=== PATIENT | male | born 1960 | race Caucasian/White ===

== ENCOUNTER 2023-08-01 17:10 | Inpatient (IN) | payer BC ==
[~2023-08-01 17:10] MED LIST: Iopamidol-370 76% 500 ML MDV (1 ML CHARGE) ONE
[2023-08-01 18:27] LABS: #Basophils 0.1 thou/uL (0.0-0.2); #Eosinphils 0.6 thou/uL (0.0-0.7); #Neutrophils 7.5 thou/uL (1.40-6.50); %Basophils 0.8 % (0.0-1.0); %Eosinophils 4.9 % (0.0-10.0); %Lymphocytes 22.8 % (21.0-51.0); %Neutrophils 63.1 % (42.0-75.0); Hematocrit 47.7 % (42.0-52.0); Hemoglobin 15.7 g/dL (14.0-18.0); Mean Corpuscular HGB CONC 32.9 g/dL (32.0-36.0); Mean Corpuscular Hemoglobin 28.6 pg (27.0-31.0); Mean Corpuscular Volume 86.9 fl (78.0-98.0); Mean Platelet Volume 10.4 fL (7.4-10.4); Platelet Count 258 10x3/uL (130-400); RBC Distribution Width 12.9 % (11.5-14.5); Red Blood Cell (RBC) Count 5.49 mill/uL (4.70-6.10); White Blood Cell (WBC) Count 11.8 10x3/uL (4.8-10.8)
[2023-08-01 18:56] LABS: ALT (SGPT) 17 U/L (8-55); AST (SGOT) 18 U/L (5-34); Albumin 4.4 g/dL (3.4-4.8); Alkaline Phosphatase 126 U/L (40-110); Anion Gap 18 mmol/L (10-20); BUN (Urea Nitrogen) 18 mg/dL (8.4-25.7); Bilirubin, Total 0.3 mg/dL (0.2-1.2); Calc. Creatinine Clearance 0 mL/min (70-130); Calcium 9.2 mg/dL (7.8-10.44); Carbon Dioxide 21 mmol/L (23-31); Chloride 100 mmol/L (98-107); Estimated GFR 63; Lipase 59 U/L (8-78); Potassium 4.4 mmol/L (3.5-5.1); Protein, Total 7.4 g/dL (5.8-8.1); Sodium 135 mmol/L (136-145)
[2023-08-01 19:08] LABS: Glucose 429 mg/dL (80-115); Troponin I 0.305 ng/mL (< 0.028)
[2023-08-01] MEDS ORDERED: Insulin Regular 300 UNITS/3 ML VIAL ONE (19:42)
[2023-08-01] MEDS ORDERED: Midazolam HCl 2 mg/2 ml Vial ONE (20:40)
[2023-08-01] MEDS ORDERED: Furosemide 40 MG/4 ML VIAL ONE (22:46)
[2023-08-01] MEDS ORDERED: Dextrose 5% in Water 1,000 ML IV PRN (22:48)
[2023-08-01] MEDS ORDERED: Glucagon 1 MG/ML KIT IM PRN (22:48)
[2023-08-01] MEDS ORDERED: Ondansetron ODT 4 MG TAB PO PRN (22:48)
[2023-08-01] MEDS ORDERED: Dextrose 50% Abboject 50 ML SYRINGE SLOW IVP PRN (22:48)
[2023-08-01] MEDS ORDERED: Ondansetron PF 4 MG/2 ML Vial IVP PRN (22:48)
[2023-08-01] MEDS ORDERED: HumaLOG 300 UNITS/3 ML VIAL SC PRN (22:48)
[2023-08-01] MEDS ORDERED: Acetaminophen 325 MG TAB PO PRN (22:48)
[2023-08-02 02:33] LABS: #Basophils 0.1 thou/uL (0.0-0.2); #Eosinphils 0.7 thou/uL (0.0-0.7); #Monocytes 1.1 thou/uL (0.11-0.59); #Neutrophils 8.2 thou/uL (1.40-6.50); %Basophils 0.6 % (0.0-1.0); %Eosinophils 5.7 % (0.0-10.0); %Lymphocytes 18.5 % (21.0-51.0); %Monocytes 9.2 % (0.0-10.0); %Neutrophils 65.7 % (42.0-75.0); Hematocrit 46.9 % (42.0-52.0); Hemoglobin 15.2 g/dL (14.0-18.0); Mean Corpuscular HGB CONC 32.4 g/dL (32.0-36.0); Mean Corpuscular Hemoglobin 28.1 pg (27.0-31.0); Mean Corpuscular Volume 86.7 fl (78.0-98.0); Mean Platelet Volume 10.4 fL (7.4-10.4); Platelet Count 255 10x3/uL (130-400); RBC Distribution Width 13.1 % (11.5-14.5); Red Blood Cell (RBC) Count 5.41 mill/uL (4.70-6.10); White Blood Cell (WBC) Count 12.4 10x3/uL (4.8-10.8)
[2023-08-02 03:17] LABS: Troponin I 2.483 ng/mL (< 0.028)
[2023-08-02 04:10] LABS: Hemoglobin A1c 11.6 % (4.0-6.0)
[2023-08-02 04:11] LABS: Anion Gap 18 mmol/L (10-20); BUN (Urea Nitrogen) 14 mg/dL (8.4-25.7); Calc. Creatinine Clearance 0 mL/min (70-130); Calcium 8.9 mg/dL (7.8-10.44); Carbon Dioxide 22 mmol/L (23-31); Cardiac Risk 6.4 (Less than 4.5); Chloride 101 mmol/L (98-107); Cholesterol 283 mg/dl (< 200 Desired); Estimated GFR 77; Glucose 298 mg/dL (80-115); HDL Cholesterol 44 mg/dL (>60 Neg Risk); LDL Cholesterol, Calculated 184 mg/dL; Potassium 4.1 mmol/L (3.5-5.1); Sodium 137 mmol/L (136-145); Triglycerides 275 mg/dL (Less than 150)
[2023-08-02 09:21] VITALS: BMI 28.5
[2023-08-02] MEDS ORDERED: Ipratropium/Albuterol 3 ML NEB ONE (10:08)
[2023-08-02] MEDS ORDERED: Ipratropium/Albuterol 3 ML NEB NEB PRN (10:21)
[2023-08-02] MEDS ORDERED: Melatonin 3 MG TAB PO PRN (19:03)
[2023-08-02] MEDS ORDERED: Sodium Chloride 0.9% 1,000 ML IV SCH (20:00)
[2023-08-02] MEDS ORDERED: Communication Order-Pharmacy FS SCH (20:00)
[2023-08-02] MEDS: Insulin Glargine 30 UNITS/0.3 ML VIAL SC SCH (20:59)
[2023-08-02] MEDS: Atorvastatin Calcium 40 MG TAB PO SCH (21:00)
[2023-08-02] MEDS: Benzonatate 100 MG CAP PO PRN (21:01)
[2023-08-03 05:02] LABS: #Basophils 0.1 thou/uL (0.0-0.2); #Eosinphils 0.5 thou/uL (0.0-0.7); #Monocytes 0.9 thou/uL (0.11-0.59); #Neutrophils 5.1 thou/uL (1.40-6.50); %Basophils 0.5 % (0.0-1.0); %Eosinophils 5.4 % (0.0-10.0); %Lymphocytes 30.3 % (21.0-51.0); %Monocytes 9.9 % (0.0-10.0); %Neutrophils 53.6 % (42.0-75.0); Hematocrit 47.7 % (42.0-52.0); Hemoglobin 15.6 g/dL (14.0-18.0); Mean Corpuscular HGB CONC 32.7 g/dL (32.0-36.0); Mean Corpuscular Hemoglobin 28.3 pg (27.0-31.0); Mean Corpuscular Volume 86.6 fl (78.0-98.0); Mean Platelet Volume 10.1 fL (7.4-10.4); Platelet Count 253 10x3/uL (130-400); RBC Distribution Width 13.2 % (11.5-14.5); Red Blood Cell (RBC) Count 5.51 mill/uL (4.70-6.10); White Blood Cell (WBC) Count 9.5 10x3/uL (4.8-10.8)
[2023-08-03 05:27] LABS: Anion Gap 13 mmol/L (10-20); BUN (Urea Nitrogen) 13 mg/dL (8.4-25.7); Calc. Creatinine Clearance 139 mL/min (70-130); Calcium 9.1 mg/dL (7.8-10.44); Carbon Dioxide 25 mmol/L (23-31); Chloride 100 mmol/L (98-107); Estimated GFR 96; Glucose 239 mg/dL (80-115); Potassium 4.1 mmol/L (3.5-5.1); Sodium 134 mmol/L (136-145)
[2023-08-03] MEDS ORDERED: Sodium Chloride 0.9% 1,000 ML IV SCH (06:00)
[2023-08-03] MEDS: Benzonatate 100 MG CAP PO PRN ×3 (08:00→20:50)
[2023-08-03] MEDS ORDERED: Iopamidol 370 76% 100 ML VIAL ONE (09:28)
[2023-08-03] MEDS ORDERED: Ipratropium/Albuterol 3 ML NEB NEB SCH (11:00)
[2023-08-03] MEDS: Lorazepam 2 MG/ML VIAL SLOW IVP PRN (13:00)
[2023-08-03] MEDS ORDERED: Adenosine 6 MG/2 ML VIAL ONE (13:03)
[2023-08-03] MEDS ORDERED: Lidocaine 1% PF 5 ML VIAL ONE (13:03)
[2023-08-03] MEDS ORDERED: Lidocaine 1% (PF) 30 ML VIAL ONE (13:03)
[2023-08-03] MEDS ORDERED: Heparin 10,000 UNITS/ 10 ML VIAL ONE (13:03)
[2023-08-03] MEDS ORDERED: Verapamil 5 MG/2 ML VIAL ONE (13:03)
[2023-08-03] MEDS ORDERED: fentaNYL 50 mcg/mL 1 mL Vial ONE (13:03)
[2023-08-03] MEDS ORDERED: Midazolam HCl 2 mg/2 ml Vial ONE (13:03)
[2023-08-03] MEDS ORDERED: Nitroglycerin 50 MG/250 ML BOT 250 ML ONE (13:04)
[2023-08-03] MEDS ORDERED: Nitroglycerin 0.4 MG TAB (25 Tab Bottle) SL PRN (14:32)
[2023-08-03] MEDS ORDERED: Acetaminophen/Codeine 30-300mg Tablet PO PRN (14:32)
[2023-08-03] MEDS ORDERED: Sodium Chloride 0.9% 200 ML IV PRN (14:32)
[2023-08-03] MEDS ORDERED: Carvedilol 6.25 MG TAB PO SCH (17:00)
[2023-08-03] MEDS ORDERED: Communication Order-Pharmacy FS SCH (19:21)
[2023-08-03] MEDS ORDERED: Diazepam 5 MG TAB PO PRN (19:21)
[2023-08-03] MEDS: Atorvastatin Calcium 40 MG TAB PO SCH (20:48)
[2023-08-03] MEDS: Insulin Glargine 30 UNITS/0.3 ML VIAL SC SCH (21:56)
[2023-08-04 04:32] LABS: #Basophils 0.1 thou/uL (0.0-0.2); #Eosinphils 0.7 thou/uL (0.0-0.7); #Monocytes 1.3 thou/uL (0.11-0.59); #Neutrophils 7.6 thou/uL (1.40-6.50); %Basophils 0.7 % (0.0-1.0); %Eosinophils 5.4 % (0.0-10.0); %Lymphocytes 22.1 % (21.0-51.0); %Monocytes 10.7 % (0.0-10.0); %Neutrophils 60.7 % (42.0-75.0); Hemoglobin 15.1 g/dL (14.0-18.0); Mean Corpuscular HGB CONC 32.1 g/dL (32.0-36.0); Mean Corpuscular Hemoglobin 28.1 pg (27.0-31.0); Mean Corpuscular Volume 87.4 fl (78.0-98.0); Mean Platelet Volume 10.3 fL (7.4-10.4); Platelet Count 257 10x3/uL (130-400); RBC Distribution Width 13.1 % (11.5-14.5); Red Blood Cell (RBC) Count 5.38 mill/uL (4.70-6.10); White Blood Cell (WBC) Count 12.5 10x3/uL (4.8-10.8)
[2023-08-04 04:59] LABS: Anion Gap 14 mmol/L (10-20); BUN (Urea Nitrogen) 12 mg/dL (8.4-25.7); Calc. Creatinine Clearance 115 mL/min (70-130); Calcium 8.8 mg/dL (7.8-10.44); Carbon Dioxide 25 mmol/L (23-31); Chloride 102 mmol/L (98-107); Estimated GFR 76; Glucose 206 mg/dL (80-115); Potassium 3.8 mmol/L (3.5-5.1); Sodium 137 mmol/L (136-145)
[2023-08-04] MEDS: HumaLOG 300 UNITS/3 ML VIAL SC PRN ×3 (05:51→17:29)
[2023-08-04] MEDS: Carvedilol 6.25 MG TAB PO SCH ×2 (08:59→17:23)
[2023-08-04] MEDS ORDERED: Aspirin 81 mg Enteric Coated Tablet PO SCH (09:00)
[2023-08-04] MEDS ORDERED: Furosemide 40 MG/4 ML VIAL SLOW IVP SCH (09:00)
[2023-08-04] MEDS ORDERED: Insulin Glargine 30 UNITS/0.3 ML VIAL SC SCH ×2 (09:00→21:00)
[2023-08-04] MEDS: Benzonatate 100 MG CAP PO PRN (14:09)
[2023-08-04] MEDS: Atorvastatin Calcium 40 MG TAB PO SCH (20:54)
[2023-08-05] MEDS ORDERED: Sevoflurane 250 ML INH ANEST BOTTLE ONE (05:12)
[2023-08-05 05:22] LABS: #Eosinphils 0.5 thou/uL (0.0-0.7); #Monocytes 1.4 thou/uL (0.11-0.59); #Neutrophils 9.6 thou/uL (1.40-6.50); %Basophils 0.3 % (0.0-1.0); %Eosinophils 3.9 % (0.0-10.0); %Monocytes 10.1 % (0.0-10.0); %Neutrophils 71.3 % (42.0-75.0); Mean Corpuscular HGB CONC 32.6 g/dL (32.0-36.0); Mean Corpuscular Hemoglobin 28.3 pg (27.0-31.0); Mean Corpuscular Volume 86.8 fl (78.0-98.0); Mean Platelet Volume 10.3 fL (7.4-10.4); Platelet Count 274 10x3/uL (130-400); RBC Distribution Width 13.1 % (11.5-14.5); White Blood Cell (WBC) Count 13.5 10x3/uL (4.8-10.8)
[2023-08-05] MEDS: Carvedilol 6.25 MG TAB PO SCH (05:45)
[2023-08-05] MEDS: Lorazepam 2 MG/ML VIAL SLOW IVP PRN (05:46)
[2023-08-05] MEDS: Benzonatate 100 MG CAP PO PRN (05:46)
[2023-08-05 05:58] LABS: Anion Gap 14 mmol/L (10-20); BUN (Urea Nitrogen) 15 mg/dL (8.4-25.7); Calc. Creatinine Clearance 123 mL/min (70-130); Calcium 9.2 mg/dL (7.8-10.44); Carbon Dioxide 25 mmol/L (23-31); Chloride 101 mmol/L (98-107); Estimated GFR 86; Glucose 190 mg/dL (80-115); Potassium 3.4 mmol/L (3.5-5.1); Sodium 137 mmol/L (136-145)
[2023-08-05] MEDS ORDERED: Norepinephrine 4 MG/4 ML VIAL ONE (06:01)
[2023-08-05] MEDS ORDERED: Fentanyl 250 MCG/5 ML VIAL ONE (06:02)
[2023-08-05] MEDS ORDERED: Midazolam HCl 5 mg/ml Vial ONE (06:02)
[2023-08-05] MEDS ORDERED: Aminocaproic Acid 5 GM/20 ML VIAL ONE ×3 (06:03→06:36)
[2023-08-05] MEDS ORDERED: Rocuronium Bromide 10 MG/ML (10ML VIAL) ONE ×2 (06:09→06:36)
[2023-08-05] MEDS ORDERED: Lidocaine 1% PF 5 ML VIAL ONE ×2 (06:09→06:36)
[2023-08-05] MEDS ORDERED: Sterile Water 10 ML ONE (06:10)
[2023-08-05] MEDS ORDERED: PROPOFOL 20 ML ONE ×2 (06:35→08:58)
[2023-08-05] MEDS ORDERED: Calcium Chloride 1 GM/10 ML Abboject SYRINGE ONE (06:36)
[2023-08-05] MEDS ORDERED: PHENYLEPHRINE-NS 100 MCG/ML 10 ML SYRINGE ONE ×3 (06:36→10:41)
[2023-08-05] MEDS ORDERED: Lidocaine 2% PF 100 mg/5 ml Syringe ONE (06:36)
[2023-08-05] MEDS ORDERED: Heparin 5,000 UNITS/ML VIAL ONE (06:36)
[2023-08-05] MEDS ORDERED: Magnesium 5 GM/10 ML VIAL ONE (06:36)
[2023-08-05] MEDS ORDERED: Thrombin 5000 UNITS/5 ML VIAL ONE (06:36)
[2023-08-05] MEDS ORDERED: Potassium Chloride 60 MEQ/30 ML VIAL ONE (06:36)
[2023-08-05] MEDS ORDERED: Sodium Bicarb 50 MEQ/50 ML VIAL ONE (06:36)
[2023-08-05] MEDS ORDERED: Papaverine 60 MG/2 ML VIAL ONE (06:36)
[2023-08-05] MEDS ORDERED: Vancomycin 1 GM VIAL ONE (06:36)
[2023-08-05] MEDS ORDERED: Heparin 30,000 units/30 ml VIAL ONE (06:36)
[2023-08-05] MEDS ORDERED: Mannitol 12.5 GM/50 ML ONE (06:36)
[2023-08-05] MEDS ORDERED: Cardioplegic Soln 1,000 ML BAG ONE (06:36)
[2023-08-05] MEDS ORDERED: Protamine Sulfate 250 MG/25 ML VIAL ONE (06:36)
[2023-08-05] MEDS ORDERED: PROPOFOL 200 MG/20 ML VIAL ONE (06:36)
[2023-08-05] MEDS ORDERED: Bupivacaine PF 0.5% 30 ML VIAL ONE (06:41)
[2023-08-05] MEDS ORDERED: Dexamethasone 4 mg/ml Vial ONE (06:41)
[2023-08-05] MEDS ORDERED: Albumin 5% 500 ML ONE (06:41)
[2023-08-05] MEDS ORDERED: EPINEPHrine 1 MG/ML VIAL ONE (06:41)
[2023-08-05] MEDS ORDERED: Lidocaine 1% MPF 2 ML VIAL ONE (06:44)
[2023-08-05] MEDS ORDERED: Heparin 10,000 UNITS/1 ML VIAL 30,000 UNITS in Sodium Chloride 0.9% 1,000 ML FS SCH (06:45)
[2023-08-05] MEDS ORDERED: Sodium Chloride 0.9% 100 ML ONE (07:18)
[2023-08-05] MEDS ORDERED: CEFAZOLIN 2 GM VIAL ONE (07:18)
[2023-08-05] MEDS ORDERED: CEFAZOLIN 2 GM in Sodium Chloride 0.9% 100 ML IVPB SCH (07:30)
[2023-08-05] MEDS ORDERED: Potassium Chloride 20 MEQ in Premix 2 BAG IVPB SCH (08:00)
[2023-08-05] MEDS ORDERED: Heparin 10,000 UNITS/ 10 ML VIAL ONE (08:18)
[2023-08-05] MEDS ORDERED: Insulin Regular 300 UNITS/3 ML VIAL ONE (08:21)
[2023-08-05] MEDS ORDERED: Protamine Sulfate 50 MG/5 ML VIAL ONE (10:40)
[2023-08-05] MEDS ORDERED: Nitroglycerin 50 MG/250 ML BOT 250 ML IVPB PRN (11:06)
[2023-08-05] MEDS ORDERED: Ipratropium/Albuterol 3 ML NEB NEB PRN (11:06)
[2023-08-05] MEDS ORDERED: fentaNYL 50 mcg/mL 1 mL Vial SLOW IVP PRN (11:06)
[2023-08-05] MEDS ORDERED: NOREPINEPHRINE 8 MG/250 ML-D5W 250 ML IVPB PRN (11:06)
[2023-08-05] MEDS ORDERED: Hetastarch 6% 500 ML 500 ML IVPB PRN (11:06)
[2023-08-05] MEDS ORDERED: hydrALAZINE 20 MG/ML VIAL SLOW IVP PRN (11:06)
[2023-08-05] MEDS ORDERED: traMADol HCl 50 MG TAB PO PRN (11:06)
[2023-08-05] MEDS ORDERED: D5 1/2 NS w/20 mEq KCL 1,000 ML IV SCH (11:06)
[2023-08-05] MEDS ORDERED: Potassium Chloride 20 MEQ/100 ML PREMIX BAG IVPB PRN (11:06)
[2023-08-05] MEDS ORDERED: Ondansetron PF 4 MG/2 ML Vial IVP PRN (11:06)
[2023-08-05] MEDS ORDERED: Phenylephrine 40 MG in Sodium Chloride 0.9% 250 ML 250 ML IVPB PRN (11:06)
[2023-08-05] MEDS ORDERED: Mag-Al 1200 mg/1200 mg/30 ML UDCUP PO PRN (11:06)
[2023-08-05] MEDS ORDERED: Post-Op Insulin Drip Protocol IVPB ONE (11:06)
[2023-08-05] MEDS ORDERED: Guaifenesin DM 100-10/5 ML UDCUP PO PRN (11:06)
[2023-08-05] MEDS ORDERED: Acetaminophen 325 MG TAB PO PRN (11:06)
[2023-08-05] MEDS ORDERED: Bisacodyl 5 MG TAB PO PRN (11:06)
[2023-08-05] MEDS ORDERED: Magnesium 2 GM/50 ML(in water) 2 GM in Premix 1 BAG IVPB SCH (11:06)
[2023-08-05] MEDS ORDERED: Bisacodyl 10 MG SUPP PR PRN (11:06)
[2023-08-05] MEDS ORDERED: Morphine 2 MG/ML VIAL SLOW IVP PRN (11:06)
[2023-08-05] MEDS ORDERED: HUMULIN R 100 UNITS in Sodium Chloride 0.9% 100 ML IVPB SCH (11:15)
[2023-08-05] MEDS ORDERED: Dextrose 50% Abboject 50 ML SYRINGE SLOW IVP PRN (11:15)
[2023-08-05] MEDS ORDERED: Glucagon 1 MG/ML KIT SC PRN (11:15)
[2023-08-05] MEDS ORDERED: Dextrose 5% in Water 1,000 ML IV PRN (11:15)
[2023-08-05 11:21] LABS: #Basophils 0.1 thou/uL (0.0-0.2); #Eosinphils 0.4 thou/uL (0.0-0.7); #Monocytes 1.6 thou/uL (0.11-0.59); #Neutrophils 18.2 thou/uL (1.40-6.50); %Basophils 0.2 % (0.0-1.0); %Eosinophils 1.8 % (0.0-10.0); %Monocytes 7.1 % (0.0-10.0); %Neutrophils 81.8 % (42.0-75.0); Hematocrit 39.2 % (42.0-52.0); Hemoglobin 12.8 g/dL (14.0-18.0); Mean Corpuscular HGB CONC 32.7 g/dL (32.0-36.0); Mean Corpuscular Hemoglobin 28.7 pg (27.0-31.0); Mean Corpuscular Volume 87.9 fl (78.0-98.0); Mean Platelet Volume 10.4 fL (7.4-10.4); Platelet Count 219 10x3/uL (130-400); Red Blood Cell (RBC) Count 4.46 mill/uL (4.70-6.10); White Blood Cell (WBC) Count 22.3 10x3/uL (4.8-10.8)
[2023-08-05] MEDS: Ketorolac Tromethamine 30 MG/ML VIAL IVP SCH ×3 (11:22→23:28)
[2023-08-05] MEDS: Insulin Regular 300 UNITS/3 ML VIAL SC PRN (11:22)
[2023-08-05 11:30] LABS: Actual Bicarbonate (HCO3a) 21.6 mEq/L (22-28); Base Excess (BEa) -2.8 mEq/L (-2.0 to +3.0); CO2 Tension 36.6 mmHg (35.0-45.0); Calcium, Ionized (arterial) 1.09 mmol/L (1.12-1.30); Carboxyhemoglobin (COHb) 1.3 gm% (0.0-3.0); Hematocrit-ABG 39 % (42.0-52.0); Hemoglobin (Hb) 13.4 g/dL (14.0-18.0); O2 Tension (PaO2), arterial 118.1 mmHg (> 80.0); Potassium - ABG Lab 4.08 mmol/L (3.70-5.30); pH, Arterial 7.389 (7.35-7.45)
[2023-08-05 11:32] LABS: Puncture Site ALINE
[2023-08-05 11:38] LABS: INR-International Normal Ratio 1.2; Prothrombin Time 16.1 sec (12.0-14.7)
[2023-08-05] MEDS: fentaNYL 50 mcg/mL 1 mL Vial SLOW IVP PRN ×2 (11:39→21:50)
[2023-08-05 11:44] LABS: Anion Gap 13 mmol/L (10-20); BUN (Urea Nitrogen) 14 mg/dL (8.4-25.7); Calc. Creatinine Clearance 131 mL/min (70-130); Calcium 7.9 mg/dL (7.8-10.44); Carbon Dioxide 23 mmol/L (23-31); Chloride 106 mmol/L (98-107); Estimated GFR 92; Glucose 192 mg/dL (80-115); Potassium 4.4 mmol/L (3.5-5.1); Sodium 138 mmol/L (136-145)
[2023-08-05] MEDS: CEFAZOLIN 2 GM in Sodium Chloride 0.9% 100 ML IVPB SCH ×2 (14:02→22:00)
[2023-08-05 14:19] LABS: Actual Bicarbonate (HCO3a) 22.4 mEq/L (22-28); CO2 Tension 37.5 mmHg (35.0-45.0); Hematocrit-ABG 40 % (42.0-52.0); Hemoglobin (Hb) 13.7 g/dL (14.0-18.0); O2 Tension (PaO2), arterial 90.4 mmHg (> 80.0); Potassium - ABG Lab 3.86 mmol/L (3.70-5.30); pH, Arterial 7.395 (7.35-7.45)
[2023-08-05 14:25] LABS: ALV-art Gradient 76.625 mmHg (0-20); Puncture Site Arterial Line
[2023-08-05] MEDS: traMADol HCl 50 MG TAB PO PRN (16:40)
[2023-08-05 18:22] LABS: Hematocrit 41.2 % (42.0-52.0); Hemoglobin 13.4 g/dL (14.0-18.0)
[2023-08-05 18:37] LABS: Potassium 3.9 mmol/L (3.5-5.1)
[2023-08-05] MEDS ORDERED: Atorvastatin Calcium 20 MG TAB PO SCH (21:00)
[2023-08-05] MEDS ORDERED: Famotidine/PF 20 mg/2ml Vial SLOW IVP SCH (21:00)
[2023-08-06] MEDS: traMADol HCl 50 MG TAB PO PRN (03:58)
[2023-08-06 05:13] LABS: #Basophils 0.1 thou/uL (0.0-0.2); #Eosinphils 0.1 thou/uL (0.0-0.7); #Monocytes 1.6 thou/uL (0.11-0.59); #Neutrophils 12.8 thou/uL (1.40-6.50); %Basophils 0.3 % (0.0-1.0); %Eosinophils 0.7 % (0.0-10.0); %Lymphocytes 9.8 % (21.0-51.0); %Monocytes 9.7 % (0.0-10.0); %Neutrophils 78.6 % (42.0-75.0); Hematocrit 41.2 % (42.0-52.0); Hemoglobin 13.1 g/dL (14.0-18.0); Mean Corpuscular HGB CONC 31.8 g/dL (32.0-36.0); Mean Corpuscular Hemoglobin 28.4 pg (27.0-31.0); Mean Corpuscular Volume 89.4 fl (78.0-98.0); Mean Platelet Volume 10.6 fL (7.4-10.4); Platelet Count 220 10x3/uL (130-400); RBC Distribution Width 13.5 % (11.5-14.5); Red Blood Cell (RBC) Count 4.61 mill/uL (4.70-6.10); White Blood Cell (WBC) Count 16.2 10x3/uL (4.8-10.8)
[2023-08-06] MEDS: Ketorolac Tromethamine 30 MG/ML VIAL IVP SCH ×3 (05:36→17:49)
[2023-08-06 06:04] LABS: Anion Gap 14 mmol/L (10-20); BUN (Urea Nitrogen) 13 mg/dL (8.4-25.7); Calc. Creatinine Clearance 157 mL/min (70-130); Calcium 8.1 mg/dL (7.8-10.44); Carbon Dioxide 21 mmol/L (23-31); Chloride 106 mmol/L (98-107); Estimated GFR 99; Glucose 123 mg/dL (80-115); Sodium 137 mmol/L (136-145)
[2023-08-06] MEDS ORDERED: Benzonatate 100 MG CAP PO PRN (06:47)
[2023-08-06] MEDS: Insulin Regular 300 UNITS/3 ML VIAL SC PRN ×4 (08:38→20:20)
[2023-08-06] MEDS: CEFAZOLIN 2 GM in Sodium Chloride 0.9% 100 ML IVPB SCH (08:39)
[2023-08-06] MEDS: Magnesium 2 GM/50 ML(in water) 2 GM in Premix 1 BAG IVPB SCH (08:40)
[2023-08-06] MEDS: Carvedilol 3.125 MG TAB PO SCH ×2 (08:40→16:53)
[2023-08-06] MEDS ORDERED: Aspirin 325 MG TAB PO SCH (09:00)
[2023-08-06] MEDS ORDERED: Insulin Glargine 30 UNITS/0.3 ML VIAL SC PRN (11:11)
[2023-08-06] MEDS ORDERED: Hetastarch 6% 500 ML 500 ML IVPB SCH (11:30)
[2023-08-06] MEDS: Atorvastatin Calcium 40 MG TAB PO SCH (20:17)
[2023-08-06] MEDS: Insulin Glargine 30 UNITS/0.3 ML VIAL SC SCH (20:19)
[2023-08-07] MEDS: Ketorolac Tromethamine 30 MG/ML VIAL IVP SCH ×5 (00:21→23:16)
[2023-08-07] MEDS: Insulin Regular 300 UNITS/3 ML VIAL SC PRN ×2 (05:17→12:54)
[2023-08-07] MEDS ORDERED: Guaifenesin DM 100-10/5 ML UDCUP PO PRN (07:23)
[2023-08-07] MEDS ORDERED: Mag-Al 1200 mg/1200 mg/30 ML UDCUP PO PRN (07:23)
[2023-08-07] MEDS ORDERED: Artificial Tear Sol 15 ML BOT EA EYE PRN (07:23)
[2023-08-07] MEDS ORDERED: diphenhydrAMINE 25 MG CAP PO PRN (07:23)
[2023-08-07] MEDS ORDERED: Bisacodyl 10 MG SUPP PR PRN (07:23)
[2023-08-07] MEDS ORDERED: Bisacodyl 5 MG TAB PO PRN (07:23)
[2023-08-07] MEDS ORDERED: Zolpidem Tartrate 5 MG TAB PO PRN (07:23)
[2023-08-07] MEDS ORDERED: Milk Of Magnesia 30 ML UDCUP PO PRN (07:23)
[2023-08-07] MEDS ORDERED: Mineral Oil ENEMA PR PRN (07:23)
[2023-08-07] MEDS ORDERED: Nitroglycerin 0.4 MG TAB (25 Tab Bottle) SL PRN (07:23)
[2023-08-07] MEDS: Magnesium 2 GM/50 ML(in water) 2 GM in Premix 1 BAG IVPB SCH (07:55)
[2023-08-07] MEDS: Insulin Glargine 30 UNITS/0.3 ML VIAL SC SCH ×2 (07:55→09:59)
[2023-08-07] MEDS: Potassium Chloride 10 MEQ TAB PO SCH (08:01)
[2023-08-07] MEDS: Furosemide 40 MG TAB PO SCH (08:01)
[2023-08-07] MEDS: Aspirin 325 mg Enteric Coated Tablet PO SCH (08:01)
[2023-08-07] MEDS ORDERED: Insulin Glargine 30 UNITS/0.3 ML VIAL SC SCH ×2 (08:19→09:00)
[2023-08-07] MEDS: Carvedilol 3.125 MG TAB PO SCH ×2 (09:59→17:59)
[2023-08-07] MEDS: traMADol HCl 50 MG TAB PO PRN (10:07)
[2023-08-07] MEDS: Benzonatate 100 MG CAP PO SCH ×2 (14:46→20:11)
[2023-08-07] MEDS: metFORMIN 500 MG TAB PO SCH (18:00)
[2023-08-07] MEDS: Atorvastatin Calcium 40 MG TAB PO SCH (20:10)
[2023-08-08] MEDS: Ketorolac Tromethamine 30 MG/ML VIAL IVP SCH ×2 (06:31→12:03)
[2023-08-08] MEDS: Furosemide 40 MG TAB PO SCH (09:15)
[2023-08-08] MEDS: Benzonatate 100 MG CAP PO SCH (09:15)
[2023-08-08] MEDS: metFORMIN 500 MG TAB PO SCH (09:15)
[2023-08-08] MEDS: Potassium Chloride 10 MEQ TAB PO SCH (09:15)
[2023-08-08] MEDS: Carvedilol 3.125 MG TAB PO SCH (09:15)
[2023-08-08] MEDS: Aspirin 325 mg Enteric Coated Tablet PO SCH (09:15)
[2023-08-08] MEDS: Insulin Glargine 30 UNITS/0.3 ML VIAL SC SCH (09:15)
[2023-08-08 11:45] VITALS: TEMP 97.6
[2023-08-08] MEDS: traMADol HCl 50 MG TAB PO PRN (12:02)
[2023-08-08] MEDS: Insulin Regular 300 UNITS/3 ML VIAL SC PRN (12:04)
[2023-08-08 12:47] VITALS: BP 136/74
== END 2023-08-08 13:10 | disposition home or self-care (01) | DRG 233 ==
LOC: ERS 17:10 → ERHOLD 22:52 → 2SW 08-02 12:25 → OBSVTOIN 08-03 14:58 → CCU 08-05 09:56 → 2NO 08-07 09:07
PROVIDERS: ADMIT Physician Assistant; ATTEND Family Medicine
PROC: B2111ZZ Fluoroscopy of Multiple Coronary Arteries using Low Osmolar Contrast (ICD-10-PCS; principal; 2023-08-03)
PROC: 02100Z9 Bypass Coronary Artery, One Artery from Left Internal Mammary, Open Approach (ICD-10-PCS; 2023-08-05)
PROC: 021109W Bypass Coronary Artery, Two Arteries from Aorta with Autologous Venous Tissue, Open Approach (ICD-10-PCS; 2023-08-05)
PROC: 06BQ4ZZ Excision of Left Saphenous Vein, Percutaneous Endoscopic Approach (ICD-10-PCS; 2023-08-05)
PROC: 5A1221Z Performance of Cardiac Output, Continuous (ICD-10-PCS; 2023-08-05)
PROC: 02L70CK Occlusion of Left Atrial Appendage with Extraluminal Device, Open Approach (ICD-10-PCS; 2023-08-05)
PROC: 4A133R1 Monitoring of Arterial Saturation, Peripheral, Percutaneous Approach (ICD-10-PCS; 2023-08-05)
PROC: 3E033XZ Introduction of Vasopressor into Peripheral Vein, Percutaneous Approach (ICD-10-PCS; 2023-08-05)
PROC: 30233J1 Transfusion of Nonautologous Serum Albumin into Peripheral Vein, Percutaneous Approach (ICD-10-PCS; 2023-08-05)
DX: I21.4 Non-ST elevation (NSTEMI) myocardial infarction (principal); J81.0 Acute pulmonary edema; I10 Essential (primary) hypertension; E78.5 Hyperlipidemia, unspecified; E66.9 Obesity, unspecified; E11.65 Type 2 diabetes mellitus with hyperglycemia; Z90.49 Acquired absence of other specified parts of digestive tract; Z98.890 Other specified postprocedural states; Z68.33 Body mass index [BMI] 33.0-33.9, adult; I95.9 Hypotension, unspecified
CPT/HCPCS: 36415; 36416; 36430; 71045; 71275; 80048; 80053; 80061; 82805; 83036; 83690; 83880; 84484; 85025; 85610; 85730; 86850; 86900; 86901; 93005; 93010; 93306; 93454; 93798; 94002; 94640; 96372; 96374; 96375; 99152; 99153; A4311; C1751; C1769; C1894; G0378; J0153; J0171; J1100; J1642; J1644; J1650; J1815; J1885; J1940; J2001; J2060; J2150; J2250; J2370; J2440; J2704; J2720; J3010; J3370; J3475; J3480; J3490; J7050; J7620; P9045; Q9967; S0017; S0020; S0028